=== PATIENT | male | born 1995 | race Caucasian/White ===

== ENCOUNTER 2022-10-28 10:03 | Emergency (ER) | payer OTHER ==
[~2022-10-28] VITALS: Ht 180.3 cm; Wt 84.1 kg
[2022-10-28] MEDS ORDERED: CeFAZolin 1 GM/DEXTROSE 50 ML IV ONE (10:15)
[2022-10-28] MEDS ORDERED: SODIUM CHLORIDE 0.9% 1,000 ML IV ONE (10:15)
[2022-10-28] MEDS ORDERED: PERTUSS(ACELL),DIPH,TET VAC/PF 0.5 ML SYRINGE IM. ONE (10:15)
[2022-10-28 10:25] VITALS: BP 107/62; PULSE 74; RESP 18
== END 2022-10-28 10:30 | disposition short-term general hospital (02) ==
LOC: EMS 10:04
DX: S51.811A Laceration without foreign body of right forearm, initial encounter (principal); X99.1XXA Assault by knife, initial encounter; Y93.89 Activity, other specified; Y92.89 Other specified places as the place of occurrence of the external cause; Y99.8 Other external cause status
CPT/HCPCS: 99285; 96365; 73100; 90715; 90471; J0690